=== PATIENT | male | born 1980 | race Caucasian/White ===

== ENCOUNTER → 2024-10-29 11:39 | Outpatient (CLI) | payer OTHER, SELFPAY ==
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
== END ==
DX: M50.321 Other cervical disc degeneration at C4-C5 level (principal); M48.02 Spinal stenosis, cervical region
CPT/HCPCS: 72050